=== PATIENT | female | born 1990 | race American Indian/Alaskan Native ===

== ENCOUNTER 2016-10-13 04:48 | Outpatient (CLI) | payer OTHER ==
[2016-10-13] MEDS ORDERED: LACTATED RINGERS 500 ML IV ONE (04:55)
[2016-10-13 05:10] VITALS: BP 119/56
[2016-10-13 05:21] LABS: Bilirubin,Urine NEG (Negative); Blood,Urine NEG (Negative); Ketones,Urine TR mg/dL (Negative); Leukocyte Esterase,Urine NEG (Negative); Mucus,Urine FEW /HPF; Nitrite,Urine NEG (Negative); Protein,Urine <15 mg/dL mg/dL (Negative); Urobilinogen,Urine < 2.0 mg/dL (<2.0); WBC,Urine < 1.0 /HPF (0.0-6.0)
[2016-10-13] MEDS ORDERED: LACTATED RINGERS 1,000 ML ONE (06:10)
[2016-10-13] MEDS ORDERED: ZOFRAN IV ONE (06:30)
--- NOTE | 2016-10-13 09:22 | Ultrasound Report ---
BIOPHYSICAL PROFILE: INDICATION: well being. COMPARISON: None similar. TECHNIQUE: Transabdominal ultrasound with Doppler interrogation. 2 - breathing movements 2 - movements 2 - posture and tone 2 - Qualitative amniotic fluid volume 8 - TOTAL SCORE OF POSSIBLE 8 Heart Rate (bpm) 159
--- NOTE | 2016-10-13 10:25 | Ultrasound Report ---
OB ULTRASOUND FOLLOW-UP GREATER THAN 14 WEEKS - TRANSABDOMINAL AND TRANSVAGINAL: INDICATION: well-being. Evaluate growth and anatomy. COMPARISON: None similar at this institution. TECHNIQUE: Transabdominal grayscale ultrasound with Doppler interrogation. Transvaginal exam to better evaluate the cervical os also performed. Gestation: santana Position: breech Amniotic Fluid: WNL (7-24 cm) JANKI = 11.7 cm Placenta: posterior, Left lateral, previa marginal; Inferior edge of the placenta noted at the internal cervical os. Placental Grade: I Heart Rate: 148 BPM Cervical length: 4.4 cm (Normal > 3 cm) BPD: 6.9 cm = 27 w 5 d HC: 27.0 cm = 29 w 3 d AC: 24.8 cm = 29 w 0 d FL: 5.4 cm = 28 w 4 d HC/AC Ratio: 1.09 Cephalic Index: 71.8 Estimated Weight: 1288 grams Clinical age = 28 w 3 d EDC: 17 US Gest. Age = 28 w 5 d EDC: 12-31-16 CONCLUSION: Single, viable intrauterine gestation with ultrasound estimated age of 28 weeks and 5 days and EDC of 12/31/2016, currently in breech lie with details, as above, including marginal placenta previa with the inferior placental edge at the internal cervical os, as described. Please correlate. Thank you for the opportunity to participate in this patient's care.
== END 2016-10-13 09:50 | disposition home or self-care (01) ==
LOC: TRG 04:48
PROVIDERS: ATTEND Obstetrics & Gynecology
DX: O32.1XX0 Maternal care for breech presentation, not applicable or unspecified (principal); O47.03 False labor before 37 completed weeks of gestation, third trimester; Z3A.28 28 weeks gestation of pregnancy
CPT/HCPCS: 59025; 76816; 76817; 76819; 81001; 96360; 96372; J2405; J7120